=== PATIENT | female | born 2000 | race Hispanic/Latino ===

== ENCOUNTER 2020-07-11 03:24 | Inpatient (IN) | payer OTHER ==
--- NOTE | 2020-07-11 04:03 | NUR ---
INTERPATH RAPID COVID TEST DONE PER DR STODDARD. COVID TEST COLLECED FROM BOTH NARES. LEFT SIDE HAD OBSTRUCTION. RIGHT SIDE GOOD. PT TOLERATED WELL.
[2020-07-11] MEDS ORDERED: PRENATAL VITAM1 EACH PO (05:15)
== END 2020-07-13 11:35 | disposition home or self-care (01) | DRG 807 ==
LOC: FBCO 03:24 → FBC 03:45
PROVIDERS: ADMIT Obstetrics & Gynecology; ATTEND Obstetrics & Gynecology
PROC: 10E0XZZ Delivery of Products of Conception, External Approach (ICD-10-PCS; principal; 2020-07-11)
PROC: 0KQM0ZZ Repair Perineum Muscle, Open Approach (ICD-10-PCS; 2020-07-11)
PROC: 0UQMXZZ Repair Vulva, External Approach (ICD-10-PCS; 2020-07-11)
PROC: 10907ZC Drainage of Amniotic Fluid, Therapeutic from Products of Conception, Via Natural or Artificial Opening (ICD-10-PCS; 2020-07-11)
PROC: 00HU33Z Insertion of Infusion Device into Spinal Canal, Percutaneous Approach (ICD-10-PCS; 2020-07-11)
PROC: 3E0R3BZ Introduction of Anesthetic Agent into Spinal Canal, Percutaneous Approach (ICD-10-PCS; 2020-07-11)
DX: O70.1 Second degree perineal laceration during delivery (principal); Z37.0 Single live birth; O71.82 Other specified trauma to perineum and vulva; Z3A.38 38 weeks gestation of pregnancy; Z20.822 Contact with and (suspected) exposure to COVID-19
CPT/HCPCS: 01960; 36415; 85027; A9270; C9803; J2550; J2590; J2795; J3010; J7121; U0003